=== PATIENT | female | born 1965 | race American Indian/Alaskan Native ===

== ENCOUNTER 2017-11-19 02:04 | Emergency (ER) | payer BC ==
[2017-11-19] MEDS ORDERED: NACL 0.9% 1000 ML 1,000 ML IV ONE (03:32)
[2017-11-19 04:00] LABS: Basophils % (Auto) 0.3 % (0.0-1.8); Eosinophils % (Auto) 0.2 % (0.0-4.3); Hematocrit 39.6 % (30.3-42.9); Lymphocytes # (Auto) 1.2 K/mm3 (1.2-5.4); Lymphocytes % (Auto) 15.4 % (13.4-35.0); Mean Corpuscular HGB Conc 33 % (30-34); Mean Corpuscular Hemoglobin 27 pg (28-32); Mean Corpuscular Volume 82 fl (79-97); Monocytes # (Auto) 0.4 K/mm3 (0.0-0.8); Monocytes % (Auto) 5.5 % (0.0-7.3); Platelet Count 401 K/mm3 (140-440); Red Blood Count 4.81 M/mm3 (3.65-5.03); Red Cell Distribution Width 13.5 % (13.2-15.2)
[2017-11-19 04:27] LABS: Alanine Aminotransferase 77 units/L (7-56); Albumin 3.8 g/dL (3.9-5); BUN/Creatinine Ratio 10; Blood Urea Nitrogen 6 mg/dL (7-17); Calcium 8.8 mg/dL (8.4-10.2); Hemolysis Index 9; Lipase 23 units/L (13-60)
[2017-11-19 04:54] LABS: Bilirubin,Urine NEG (Negative); Blood,Urine NEG (Negative); Color,Urine Amber (Yellow); Mucus,Urine 3+ /HPF
[2017-11-19] MEDS ORDERED: ZOFRAN IV ONE (07:59)
[2017-11-19] MEDS ORDERED: MORPHINE IV ONE (07:59)
--- NOTE | 2017-11-19 08:02 | Emergency Department Report ---
ED Abdominal Pain HPI - General Chief Complaint: Abdominal Pain Stated Complaint: ABD PAIN Time Seen by Provider: 11/19/17 07:44 Source: patient Mode of arrival: Ambulatory Limitations: No Limitations - History of Present Illness Initial Comments: Patient is 52 years old female with no significant past medical history. Patient presented to the ER complaining of right upper and lower quadrant pain started last night. Patient stated that pain is sharp, 10 out of 10. Patient stated that pain associated with nausea but no vomiting. Patient stated that she have a bowel movement movement for the last 24 hours. She stated that she used to take laxative and the pain will go away but this is more than that. Patient denied any fever or chills. MD Complaint: abdominal pain -: Last night Location: RUQ, RLQ Radiation: none Migration to: no migration Severity: moderate Severity scale (0 -10): 10 Quality: sharp - Related Data Home Medications Medication Instructions Recorded Confirmed Last Taken No Known Home Medications [No 11/19/17 11/19/17 Unknown Reported Home Medications] Allergies Allergy/AdvReac Type Severity Reaction Status Date / Time No Known Allergies Allergy Verified 11/19/17 07:45 ED Review of Systems ROS: Stated complaint: ABD PAIN Other details as noted in HPI Comment: All other systems reviewed and negative Constitutional: denies: chills, fever Respiratory: denies: cough, orthopnea, shortness of breath, SOB with exertion, SOB at rest, wheezing Cardiovascular: denies: chest pain, palpitations, dyspnea on exertion Gastrointestinal: abdominal pain, nausea, constipation. denies: vomiting, diarrhea, hematemesis, melena, hematochezia Musculoskeletal: denies: back pain Neurological: denies: headache, weakness, numbness, paresthesias, confusion, abnormal gait ED Past Medical Hx - Past Medical History Previous Medical History?: No - Surgical History Past Surgical History?: No - Social History Smoking Status: Never Smoker Substance Use Type: None - Medications Home Medications: Home Medications Medication Instructions Recorded Confirmed Last Taken Type No Known Home Medications [No 11/19/17 11/19/17 Unknown History Reported Home Medications] ED Physical Exam - General Limitations: No Limitations General appearance: alert, in no apparent distress - Head Head exam: Present: atraumatic, normocephalic, normal inspection - Eye Eye exam: Present: normal appearance, PERRL - ENT ENT exam: Present: normal exam, normal orophraynx, mucous membranes moist - Neck Neck exam: Present: normal inspection, full ROM. Absent: tenderness, meningismus, lymphadenopathy, thyromegaly - Respiratory Respiratory exam: Present: normal lung sounds bilaterally. Absent: respiratory distress, wheezes, rales, rhonchi, chest wall tenderness, accessory muscle use, decreased breath sounds, prolonged expiratory - Cardiovascular Cardiovascular Exam: Present: regular rate, normal rhythm, normal heart sounds - GI/Abdominal GI/Abdominal exam: Present: soft, tenderness (right upper quadrant tenderness), normal bowel sounds. Absent: distended, guarding, rebound, rigid, hyperactive bowel sounds, hypoactive bowel sounds, organomegaly, mass, bruit, pulsatile mass , hernia - Extremities Exam Extremities exam: Present: normal inspection, full ROM, normal capillary refill - Back Exam Back exam: Present: normal inspection, full ROM. Absent: tenderness, CVA tenderness (R), CVA tenderness (L), muscle spasm, paraspinal tenderness, vertebral tenderness, rash noted - Neurological Exam Neurological exam: Present: alert, oriented X3, CN II-XII intact, normal gait, reflexes normal - Skin Skin exam: Present: warm, intact, normal color ED Course Vital Signs 11/19/17 11/19/17 11/19/17 02:57 03:25 06:55 Temperature 97.6 F 97.6 F 97.8 F Pulse Rate 68 72 68 Respiratory 18 16 18 Rate Blood Pressure 145/79 145/79 Blood Pressure 133/71 [Left] O2 Sat by Pulse 96 98 99 Oximetry 11/19/17 07:26 Temperature 97.8 F Pulse Rate 84 Respiratory 18 Rate Blood Pressure Blood Pressure 143/75 [Left] O2 Sat by Pulse 98 Oximetry ED Medical Decision Making - Lab Data Result diagrams: 11/19/17 03:39 11/19/17 03:39 - Radiology Data Radiology results: report reviewed Referring Physician: ESTEVAN SOMMER Patient Name: AIDEE ISLAS Date of : 1965 Sex: Female Report Date: 2017-11-19 Report Status: Finalized Findings [facility] [address] [place] [address] Cat Scan Report Signed Patient: AIDEE ISLAS MR#: [id number] : 1965 Acct:[id number] Age/Sex: 52 / F ADM Date: 11/19/17 Loc: ED Attending Dr: Ordering Physician: ESTEVAN SOMMER Date of Service: 11/19/17 Procedure(s): CT abdomen pelvis w con Accession Number(s): [id number] cc: ESTEVAN SOMMER CT ABDOMEN PELVIS WITH CONTRAST: HISTORY: abdominal pain. COMPARISON: none. TECHNIQUE: Helical CT in 1.25mm intervals following IV contrast. Sagittal and coronal reconstructions. FINDINGS: Lung bases: Normal. Liver: Normal. Biliary system: Normal. Pancreas: Normal. Spleen: Normal. Kidneys/ureters/bladder: Normal. Adrenal glands: Normal. Aorta: Normal. Intestines: Normal. Appendix: Normal. Pelvic viscera: There are multiple small uterine fibroids measuring up to 2 cm. There are 2 right adnexal cysts measuring 3.5 cm and 2.4 cm consistent with ovarian cysts. The left adnexa is unremarkable. Ascites: None. Adenopathy: None. Musculoskeletal: Normal. IMPRESSION: Right ovarian cysts as described. Mild uterine fibroid disease. No acute inflammatory process is identified in the abdomen or pelvis. Transcribed By: TTR Dictated By: CAITLYN GEORGES JR, MD Electronically Authenticated By: CAITLYN GEORGES JR, MD Signed Date/Time: 11/19/17854 DD/ 3 TD/TT: 11/19/17854 - Medical Decision Making Patient is 52 years old female with no significant past medical history. Patient presented to the ER complaining of right upper and lower quadrant pain since yesterday. Patient stated that she is feeling much better after the pain medication. CT abdomen and pelvis showed a right ovarian cyst. I discussed with the patient has CT abdomen and pelvis finding and advised that follow-up with spray pilot in the next 2-3 days. Provide how his pain medication and advised also to return to the ER if her symptoms as getting worse. Critical care attestation.: If time is entered above; I have spent that time in minutes in the direct care of this critically ill patient, excluding procedure time. ED Disposition Clinical Impression: Abdominal pain, Ovarian cyst Disposition: - TO HOME OR SELFCARE Is pt being admited?: No Condition: Stable Instructions: Abdominal Pain (ED), Ovarian Cyst (ED) Referrals: MICHAEL DURAN MD [Staff Physician] - 3-5 Days
--- NOTE | 2017-11-19 08:56 | Cat Scan Report ---
CT ABDOMEN PELVIS WITH CONTRAST: HISTORY: abdominal pain. COMPARISON: none. TECHNIQUE: Helical CT in 1.25mm intervals following IV contrast. Sagittal and coronal reconstructions. FINDINGS: Lung bases: Normal. Liver: Normal. Biliary system: Normal. Pancreas: Normal. Spleen: Normal. Kidneys/ureters/bladder: Normal. Adrenal glands: Normal. Aorta: Normal. Intestines: Normal. Appendix: Normal. Pelvic viscera: There are multiple small uterine fibroids measuring up to 2 cm. There are 2 right adnexal cysts measuring 3.5 cm and 2.4 cm consistent with ovarian cysts. The left adnexa is unremarkable. Ascites: None. Adenopathy: None. Musculoskeletal: Normal. IMPRESSION: Right ovarian cysts as described. Mild uterine fibroid disease. No acute inflammatory process is identified in the abdomen or pelvis.
[2017-11-19 11:46] VITALS: BP 126/72
== END 2017-11-19 11:45 | disposition home or self-care (01) ==
LOC: ED 02:04
DX: N83.201 Unspecified ovarian cyst, right side (principal)
CPT/HCPCS: 36415; 74177; 80053; 81001; 83690; 84703; 85025; 96374; 96375; 99284; J2270; J2405; J7030; Q9967

== ENCOUNTER 2019-12-18 09:20 | Emergency (ER) | payer BC ==
--- NOTE | 2019-12-18 10:55 | Emergency Department Report ---
ED General Adult HPI - General Chief complaint: High BP Stated complaint: hypertension Time Seen by Provider: 12/18/19 10:22 Source: patient Mode of arrival: Ambulatory Limitations: No Limitations - History of Present Illness Initial comments: Chief complaint: "My blood pressure has been spiking." HPI: This is a 54-year-old female with no significant past medical history who presents with elevated blood pressure. She states that she just did not feel well on yesterday. She noticed that her blood pressure has been elevated systolic 185. Systolic blood pressures normally 120-130. She does have diet which includes salt sodium. She also has gained 15 pounds over the last 6 months. This morning patient noticed transient blurry vision which lasted few seconds now resolved. She did not have any associated headache, difficulty walking. She did not have difficulty with speech or weakness in the extremities. She is currently symptom-free now. Over the last 3 years she has gained 40 pounds. 3 years ago, she weighed 165 pounds. Today she weighs 205 pounds. Her height is 5 6. Patient states that she has been left active over the last several months. Patient does have family history of hypertension. -: days(s) (1) Severity scale (0 -10): 0 Consistency: now resolved Improves with: none Worsens with: none Associated Symptoms: denies other symptoms, other (Elevated blood pressure) - Related Data Previous Rx's Medication Instructions Recorded Last Taken Type Ondansetron [Zofran Odt] 4 mg PO Q8HR PRN #14 tab.rapdis 11/19/17 Unknown Rx traMADoL [Ultram] 50 mg PO Q6HR PRN #14 tablet 11/19/17 Unknown Rx Allergies Allergy/AdvReac Type Severity Reaction Status Date / Time No Known Allergies Allergy Verified 11/19/17 07:45 ED Review of Systems ROS: Stated complaint: hypertension Other details as noted in HPI Comment: All other systems reviewed and negative Constitutional: denies: fever, malaise Cardiovascular: denies: chest pain Gastrointestinal: denies: abdominal pain, nausea, vomiting ED Past Medical Hx - Past Medical History Previous Medical History?: No - Surgical History Past Surgical History?: No - Social History Smoking Status: Never Smoker Substance Use Type: None - Medications Home Medications: Home Medications Medication Instructions Recorded Confirmed Last Taken Type Ondansetron [Zofran Odt] 4 mg PO Q8HR PRN #14 tab.rapdis 11/19/17 Unknown Rx traMADoL [Ultram] 50 mg PO Q6HR PRN #14 tablet 11/19/17 Unknown Rx ED Physical Exam - General Limitations: No Limitations General appearance: alert, in no apparent distress - Head Head exam: Present: atraumatic, normocephalic - Eye Eye exam: Present: normal appearance - ENT ENT exam: Present: mucous membranes moist - Neck Neck exam: Present: normal inspection, full ROM - Respiratory Respiratory exam: Present: normal lung sounds bilaterally. Absent: respiratory distress, wheezes, rales, rhonchi - Cardiovascular Cardiovascular Exam: Present: regular rate, normal rhythm, normal heart sounds. Absent: systolic murmur, diastolic murmur, rubs, gallop - GI/Abdominal GI/Abdominal exam: Present: soft, normal bowel sounds. Absent: distended, tenderness, guarding, rebound - Extremities Exam Extremities exam: Present: normal inspection - Neurological Exam Neurological exam: Present: alert, oriented X3 - Psychiatric Psychiatric exam: Present: normal affect, normal mood - Skin Skin exam: Present: warm, dry, intact, normal color. Absent: rash ED Course Vital Signs 12/18/19 12/18/19 09:43 09:57 Temperature 98.2 F Pulse Rate 74 88 Respiratory 18 14 Rate Blood Pressure 181/92 Blood Pressure 181/80 [Left] O2 Sat by Pulse 98 99 Oximetry ED Medical Decision Making - Medical Decision Making Hypertensive urgency, with transient blurry vision I do not suspect TIA. Patient did not have any other concomitant symptoms of neurological insult. I had extensive discussion with patient. She desires to begin lifestyle modification until she sees her primary physician at [facility] in [place]. She plans to decrease sodium in her diet and increase exercise. Patient understands return for any new symptoms or recurrent symptoms. Critical care attestation.: If time is entered above; I have spent that time in minutes in the direct care of this critically ill patient, excluding procedure time. ED Disposition Clinical Impression: Hypertensive urgency Disposition: DC-01 TO HOME OR SELFCARE Is pt being admited?: No Does the pt Need Aspirin: No Condition: Stable Additional Instructions: Your blood pressure today is 181/92. Please increase your amount of exercise. Please increase your water intake. Please decrease your sodium intake. Please take this paperwork to your primary physician. Referrals: PRIMARY CARE, [Primary Care Provider] - 3-5 Days
[2019-12-18 11:23] VITALS: BP 159/85
== END 2019-12-18 11:23 | disposition home or self-care (01) ==
LOC: ED 09:20
DX: I16.0 Hypertensive urgency (principal); Z79.899 Other long term (current) drug therapy
CPT/HCPCS: 99282